=== PATIENT | female | born 1940 | race Caucasian/White ===

== ENCOUNTER 2021-05-28 05:54 | Observation (INO) | payer MEDICARE, BC ==
[2021-05-24 12:43] LABS: CLARITY,URINE CLEAR (CLEAR); COLOR,URINE YELLOW (YELLOW); KETONES,URINE NEGATIVE (NEGATIVE); LEUKOCYTE ESTERASE ,URINE NEGATIVE (NEGATIVE); NITRITE,URINE NEGATIVE (NEGATIVE); PROTEIN,URINE DIPSTICK NEGATIVE (NEGATIVE); URINE UROBILINOGEN 0.2 mg/dL (0.2 - 1)
[2021-05-24 12:44] LABS: BASOPHILS % 0.5 % (0.0-1.0); EOSINOPHILS # (AUTO) 0.1 (0.0-0.4); HEMATOCRIT 41.7 % (34.2-44.1); HEMOGLOBIN 13.4 g/dL (12.0-16.0); LYMPHOCYTES # (AUTO) 1.7 (1.0-3.2); LYMPHOCYTES % 25.5 % (18.0-39.1); MEAN CORPUSCULAR HEMOGLOBIN 27.8 pg (28-32); MEAN CORPUSCULAR HGB CONC 32.1 g/dL (31-35); MEAN CORPUSCULAR VOLUME 86.5 fL (81-99); MONOCYTES # (AUTO) 0.4 (0.2-0.8); MONOCYTES % 6.3 % (4.4-11.3); NEUTROPHILS # (AUTO) 4.3 (2.1-6.9); NEUTROPHILS % 65.4 % (38.7-80.0); PLATELET COUNT 156 x10e3/uL (140-360); RED BLOOD COUNT 4.82 x10e6/uL (3.6-5.1); RED CELL DISTRIBUTION WIDTH 14.1 % (11.7-14.4)
[2021-05-24 13:01] LABS: ALBUMIN/GLOBULIN RATIO 1.1 (0.8-2.0); ANION GAP 8.9 mmol/L (8-16); CALCIUM 9.5 mg/dL (8.4-10.2); CREATININE, SERUM 0.77 mg/dL (0.57-1.11); POTASSIUM 4.9 mmol/L (3.5-5.1)
[2021-05-28] VITALS (7 sets, daily range): BP systolic 140–178; BP diastolic 64–83
[~2021-05-28] VITALS: Ht 160 cm; Wt 66.2 kg
[~2021-05-28 05:54] MED LIST: MULTI-VITAMIN1 EACH PO; OMEGA 3 FISH O1 EACH PO; OMEPRAZOLE40 MG PO; SUCRALFATE1 GM PO
[2021-05-28] MEDS ORDERED: SODIUM CHLORIDE 0.9% 50ML 100 ML ONE (06:04)
[2021-05-28] MEDS ORDERED: ESTROGENS CONJUGATED VAGINAL CR 45 GM TUBE PV ONE (07:48)
[2021-05-28] MEDS ORDERED: ONDANSETRON HCL INJ 2MG/ML 2ML 2 MG/ML VIAL IV PRN (09:30)
[2021-05-28] MEDS ORDERED: DOCUSATE SODIUM 100 MG CAP PO PRN (09:30)
[2021-05-28] MEDS ORDERED: Morphine 2mg Syringe 2 MG/ML SYR IV PRN (09:30)
[2021-05-28] MEDS ORDERED: DIPHENHYDRAMINE HCL 25 MG CAP PO PRN (09:30)
[2021-05-28] MEDS ORDERED: ACETAMINOPHEN 325 MG TAB PO PRN (09:30)
[2021-05-28] MEDS ORDERED: FENTANYL CITRATE/PF 100MCG/2 ML INJ ONE ×2 (09:36→12:16)
[2021-05-28] MEDS: LACTATED RINGER'S 1,000 ML IV SCH ×2 (10:42→23:12)
[2021-05-28] MEDS: SIMETHICONE 80 MG CHEW PO SCH ×4 (13:00→23:12)
[2021-05-28] MEDS ORDERED: LIDOCAINE HCL 2% LOCAL INJ 5 ML SDV VIAL INJ ONE (13:15)
[2021-05-28] MEDS ORDERED: SEVOFLURANE INHAL SOLN 250 ML PEN BTL ONE (13:15)
[2021-05-28] MEDS ORDERED: PROPOFOL IV EMULSION 10 MG/ML 20 ML VIAL ONE (13:15)
[2021-05-28] MEDS ORDERED: KETOROLAC TROMETHAMINE 30 MG/ML VIAL ONE (13:15)
[2021-05-28] MEDS ORDERED: GLYCOPYRROLATE INJ 0.2 MG/ML VIAL ONE (13:15)
[2021-05-28] MEDS ORDERED: ONDANSETRON HCL INJ 2MG/ML 2ML 2 MG/ML VIAL ONE (13:15)
[2021-05-28] MEDS ORDERED: VASOPRESSIN INJ 20 UNIT/ML VIAL ONE (13:15)
[2021-05-28] MEDS ORDERED: EPHEDRINE SULFATE INJ 50 MG/ML VIAL ONE (13:15)
[2021-05-28] MEDS ORDERED: DEXAMETHASONE SOD PHOS INJ 4 MG/ML SDV ONE (13:15)
[2021-05-28] MEDS ORDERED: POVIDONE IODINE 0.05% 0.05 % ML PO ONE (13:15)
[2021-05-28] MEDS ORDERED: IBUPROFEN 400 MG TAB PO ONE (14:00)
[2021-05-28] MEDS: SUCRALFATE 1 GM TAB PO SCH (17:02)
[2021-05-28] MEDS: FAMOTIDINE 20 MG TAB PO SCH (17:02)
[2021-05-28] MEDS: TRAMADOL HCL 50 MG TAB PO PRN (17:09)
[2021-05-29] VITALS: BP 130/91
[2021-05-29] MEDS: LACTATED RINGER'S 1,000 ML IV SCH ×2 (02:50→06:01)
[2021-05-29 04:00] VITALS: BP_SYST 130; BP_SYST 165; BP_DIAS 54; BP_DIAS 78
[2021-05-29] MEDS ORDERED: PANTOPRAZOLE SOD 40 MG TABEC PO SCH (07:30)
[2021-05-29 08:00] VITALS: BP 127/75
[2021-05-29] MEDS: SUCRALFATE 1 GM TAB PO SCH (08:09)
[2021-05-29] MEDS: FAMOTIDINE 20 MG TAB PO SCH (08:09)
[2021-05-29] MEDS: SIMETHICONE 80 MG CHEW PO SCH (08:09)
[2021-05-29 08:12] VITALS: BP 127/75
[2021-05-29] MEDS ORDERED: COLACE100 MG PO (08:49)
[2021-05-29] MEDS ORDERED: ULTRAM 50MG50 MG PO (08:49)
[2021-05-29] MEDS: TRAMADOL HCL 50 MG TAB PO PRN (09:06)
== END 2021-05-29 10:10 | disposition home or self-care (01) ==
LOC: OR 05:54 → PACU V 09:20 → MED/SURG 10:02
PROVIDERS: ADMIT Obstetrics & Gynecology; ATTEND Obstetrics & Gynecology
DX: N81.6 Rectocele (principal); Z01.818 Encounter for other preprocedural examination; Z20.822 Contact with and (suspected) exposure to COVID-19
CPT/HCPCS: 36415; 57250; 71046; 80053; 81003; 85025; 86850; 86900; 93005; 94799 ×2; G0378 ×2; J0690; J1100; J1885; J2001; J2270; J2405; J2704; J3010; J7050; J7121 ×2; S0164; U0002